=== PATIENT | female | born 1985 | race Two or more races ===

== ENCOUNTER 2021-07-08 08:55 | Day surgery (SDC) | payer OTHER ==
[2021-07-08] MEDS ORDERED: NAPR500T14 PO (13:58)
[2021-07-08] MEDS ORDERED: MORGIDOX100 MG PO (13:58)
== END 2021-07-08 18:30 | disposition home or self-care (01) ==
LOC: CIR.AMB 08:55
PROVIDERS: ATTEND Obstetrics & Gynecology
DX: D25.0 Submucous leiomyoma of uterus (principal); N84.0 Polyp of corpus uteri; Z20.822 Contact with and (suspected) exposure to COVID-19

== ENCOUNTER 2025-03-10 08:00 | Outpatient (CLI) | payer OTHER ==
[~2025-03-10] VITALS: Ht 160 cm; Wt 119.7 kg
[~2025-03-10 08:00] MED LIST: MORGIDOX100 MG PO; NAPR500T14 PO
[2025-03-10 12:33] VITALS: BP 145/83
[2025-03-10 15:20] LABS: BASO % 0.6 % (0.1-1.2); EOS # 0.12 (0.04-0.54); EOS % 1.3 % (0.7-7.0); LYMPH # 1.71 (1.18-3.74); LYMPH % 19.1 % (19.3-53.1); MEAN CORPUSCULAR HEMOGLOBIN 26.1 pg (25.6-32.2); MONO # 0.63 (0.24-0.82); NEUT # 6.37 (1.56-6.13); NEUT % 71.2 % (34.0-71.1); PLATELET COUNT 262 K/uL (163-369); RED BLOOD COUNT 3.06 M/uL (3.93-5.22); RED CELL DISTRIBUTION WIDTH 16.6 % (11.6-14.4)
== END 2025-03-10 08:01 | disposition home or self-care (01) ==
LOC: LAB 08:00 → OB/GYN 03-13 07:00 → EDSTATUS 03-13 11:00 → OB/GYN 03-13 11:00
PROVIDERS: ATTEND Obstetrics & Gynecology
DX: N92.0 Excessive and frequent menstruation with regular cycle (principal); D64.9 Anemia, unspecified; D25.1 Intramural leiomyoma of uterus; N81.11 Cystocele, midline

== ENCOUNTER 2025-03-12 13:03 | Inpatient (IN) | payer OTHER ==
[~2025-03-12] VITALS: Ht 160 cm; Wt 119.7 kg
[2025-03-12 14:26] VITALS: BP 136/80; O2SAT 98
--- NOTE | 2025-03-12 14:29 | NUR ---
PTE ALERTA Y ORINTADA X3 REFIERE VENIR A TIM POR REFERIDO DE DRA FELDMAN POR NIVELES DE HEMOGLOBINA EN 8 YA QUE LA MISMA SE LE REALIZARA HISTERECTOMIA MANANA. SE MIDEN S/V Y SE UBICA.
[2025-03-12] MEDS ORDERED: 0.9 % SODIUM CHLORIDE 1,000 ML IV SCH (16:15)
--- NOTE | 2025-03-12 16:48 | NUR ---
RN PEREZ EDUCA ACERCA DE [place] ORDENADO Y REFIERE ENTENDER. SE CANALIZA Y COLECTAN MUESTRAS DE LABORATORIO MEDIANTE MEDIDAS ASEPTICAS.
[2025-03-12 16:50] LABS: BASO % 0.7 % (0.1-1.2); EOS # 0.08 (0.04-0.54); EOS % 0.9 % (0.7-7.0); LYMPH # 1.63 (1.18-3.74); LYMPH % 18.5 % (19.3-53.1); MEAN PLATELET VOLUME 11.20 fl (9.4-12.4); MONO # 0.65 (0.24-0.82); MONO % 7.4 % (4.7-12.5); NEUT # 6.30 (1.56-6.13); NEUT % 71.7 % (34.0-71.1); RED CELL DISTRIBUTION WIDTH 17.2 % (11.6-14.4)
[2025-03-12 17:09] LABS: INR 1.01
[2025-03-12 17:14] LABS: ALT/SGPT 28.0 U/L (12-78); AST/SGOT 27.0 U/L (15-37); BILIRUBIN TOTAL 0.34 mg/dL (0.3-1.2); BUN CREA RATIO 14.0 (7.0-25.0); CREATININE SERUM 0.59 mg/dL (0.55-1.02); GFR 112.32; GLOBULINA 3.3 G/DL (2.4-3.5); GLUCOSE FASTING 80.0 mg/dL (65-100); OSMOLALITY SERUM 280.0 MOSM/KG (275-295)
[2025-03-12 17:27] LABS: URINE APPEARANCE Clear; URINE BILIRRUBIN Negative (NEGATIVE); URINE BLOOD Negative; URINE COLOR Yellow; URINE GLUCOSE Negative (NEGATIVE); URINE KETONE Negative (NEGATIVE); URINE LEUKOCYTE Negative; URINE NITRATE Negative; URINE PROTEIN Negative (NEGATIVE); URINE UROBILINOGEN 0.2 E.U./dl
[2025-03-12 17:30] LABS: URINE BACTERIA 121.0 uL (0.0-1933); URINE EPITHELIAL CELLS 4.4 uL (0.0-38.8); URINE WBC 2.1 uL (0.0-23.2)
[2025-03-12 17:33] LABS: URINE CAST 0.14 uL (0.0-1.40); URINE RBC 0.2 uL (0.0-20.8)
== END 2025-03-12 19:00 | disposition left against medical advice (07) | DRG 812 ==
LOC: ER 13:17 → SEC-K 18:17 → OB/GYN 18:17 → SEC-K 19:00
PROVIDERS: General Practice; ADMIT Obstetrics & Gynecology; ATTEND Obstetrics & Gynecology
DX: D64.9 Anemia, unspecified (principal); Z53.29 Procedure and treatment not carried out because of patient's decision for other reasons